=== PATIENT | female | born 1945 | race American Indian/Alaskan Native ===

== ENCOUNTER 2016-09-15 00:16 | Emergency (ER) | payer MEDICARE ==
--- NOTE | 2016-09-15 00:32 | Emergency Department Report ---
ED Neuro Deficit HPI - General Stated Complaint: LEFT SIDE WEAKNESS/SLURRED SPEECH Time Seen by Provider: 09/15/16 00:27 - History of Present Illness Initial Comments: This is a pleasant 71-year-old female who comes in by EMS due to left-sided weakness and slurred speech. EMS do report when they arrived on scene the patient patient was speaking clearly and was able to hand her cards to them with her left hand. Her symptoms of clearly changed in between. Should the patient indicates that she was using the restroom. She went to sit up from the toilet and was not able to use her left arm appropriately to help her with this process she I was ultimately able to get up and when she went and saw her he indicated that she had a left facial droop and that she was slurring her speech. EMS was called at that time. She believes her symptoms began around 2314. She denies any headache associated with this. She reports a being essentially normal day in general. Patient does indicate that she does have history of atrial fibrillation. She has been on different medications in the past for this including warfarin and pradaxa. She is not currently on any anticoagulation as she keeps having GI bleeding when she is on anticoagulants. She only takes metoprolol and lisinopril currently. She denies any recent trauma. She denies any seizure history. - Related Data Allergies/Adverse Reactions: Allergies Allergy/AdvReac Type Severity Reaction Status Date / Time No Known Allergies Allergy Verified 09/15/16 00:45 ED Review of Systems ROS: Stated complaint: LEFT SIDE WEAKNESS/SLURRED SPEECH Other details as noted in HPI Comment: All other systems reviewed and negative Constitutional: denies: chills, fever Eyes: denies: eye pain, eye discharge, vision change ENT: denies: ear pain, throat pain Respiratory: denies: cough, shortness of breath, wheezing Cardiovascular: denies: chest pain, palpitations Endocrine: no symptoms reported Gastrointestinal: denies: abdominal pain, nausea, diarrhea Genitourinary: denies: urgency, dysuria, discharge Musculoskeletal: other (L ankle pains from recent trauma). denies: back pain, joint swelling, arthralgia Skin: denies: rash, lesions Neurological: weakness, other (speech difficulty). denies: headache, paresthesias Psychiatric: denies: anxiety, depression Hematological/Lymphatic: denies: easy bleeding, easy bruising ED Neuro Physical Exam - General General appearance: alert, in no apparent distress, other (obvious facial asymmetry and slurring of speech) Suspected Stroke: Yes - Head Head exam: Present: atraumatic, normocephalic - Eye Eye exam: Present: normal appearance, EOMI. Absent: scleral icterus - ENT ENT exam: Present: normal orophraynx, mucous membranes moist - Neck Neck exam: Present: normal inspection, full ROM. Absent: meningismus, lymphadenopathy - Respiratory Respiratory exam: Present: normal lung sounds bilaterally. Absent: respiratory distress, wheezes, rales - Cardiovascular Cardiovascular Exam: Present: regular rate, irregular rhythm. Absent: systolic murmur, diastolic murmur, rubs, gallop - GI/Abdominal GI/Abdominal exam: Present: soft, normal bowel sounds. Absent: distended, tenderness, guarding - Extremities Exam Extremities exam: Present: normal inspection, normal capillary refill, other ( left ankle and walking boot. No other trauma noted to the lower extremities.). Absent: calf tenderness - Back Exam Back exam: Present: normal inspection. Absent: tenderness, CVA tenderness (R), CVA tenderness (L) - Neurological Exam Neurological exam: Present: alert, oriented X3, other (left facial droop with some nasolabial flattening noted as well. Some slight tongue deviation of the left. Gag is intact. Good strength and closing the eyes. Turns headache either way without difficulty. Upper extremity demonstrates left arm weakness. She is able to lift up against gravity but has significantly diminished strength compared to that of right. Leg is similar with able to lift against gravity but diminished compared to the right. Partial gaze palsy) - NIHSS Assessment Interval: Baseline 1a. Level of Consciousness: alert 1b. LOC Questions: answers correctly 1c. LOC Commands: performs tasks correctly 2. Best Gaze: partial gaze palsy 3. Visual: no visual loss 4. Facial Palsy: partial paralysis 5b. Motor Arm Right: no drift 5a. Motor Arm Left: drift 6a. Motor Leg Left: drift 6b. Motor Leg Right: no drift 7. Limb Ataxia: present 1 limb 8. Sensory: normal 9. Best Language: no aphasia 10. Dysarthria: mild/moderate dysarthria 11. Extinction/Inattention: no abnormality Total Score: 7 Stroke Severity: Moderate Stroke - Psychiatric Psychiatric exam: Present: normal affect, normal mood - Skin Skin exam: Present: warm, dry, intact, normal color. Absent: rash ED Course Vital Signs 09/15/16 09/15/16 09/15/16 00:18 00:54 01:48 Temperature 98.1 F Pulse Rate 64 64 72 Pulse Rate [ Right Arm] Respiratory 20 20 20 Rate Respiratory Rate [Right Arm ] Blood Pressure 164/61 Blood Pressure [Right Arm] Blood Pressure 164/61 179/56 [Right] O2 Sat by Pulse 98 98 98 Oximetry O2 Sat by Pulse Oximetry [ Right Arm] 09/15/16 09/15/16 09/15/16 01:58 02:09 02:14 Temperature Pulse Rate 69 79 76 Pulse Rate [ 76 Right Arm] Respiratory 20 Rate Respiratory 20 Rate [Right Arm ] Blood Pressure 190/64 156/74 Blood Pressure 156/74 [Right Arm] Blood Pressure 134/73 [Right] O2 Sat by Pulse 100 Oximetry O2 Sat by Pulse 98 Oximetry [ Right Arm] 09/15/16 09/15/16 09/15/16 02:15 02:29 02:44 Temperature Pulse Rate 76 Pulse Rate [ 102 H 84 Right Arm] Respiratory Rate Respiratory 20 20 Rate [Right Arm ] Blood Pressure 156/74 Blood Pressure 181/84 179/86 [Right Arm] Blood Pressure [Right] O2 Sat by Pulse Oximetry O2 Sat by Pulse 99 97 Oximetry [ Right Arm] - Reevaluation(s) Reevaluation #1: 09/15/16 00:35 Code stroke called. Labs have been drawn. Patient on way to CT at this time. She does appear to be a TPA candidate. Reevaluation #2: 09/15/16 01:03 ECG at O 48 with atrial fibrillation at 62 bpm. Right axis is noted. QRS is prolonged at [address]-T wave changes are noted as well. No old to compare to. Reevaluation #3: 09/15/16 02:20 CT brain initially demonstrated possible right MCA aneurysmal lesion. I didn't order a CTA due to this. CTA demonstrates ultimately some mild dilation in the right MCA distribution area but clear evidence of clot in the same area per DR. Barton. There is no contraindication as per the neurologist for TPA at this point I did not longest conversation with family as well we all concur that TPA should be pushed. This was ordered. Needle time was 02:10. Will send the pt for rescure therapy as well due to the large clot. Arrangements were made by the neurologist for transfer. Dr. Barton is my accepting physician. Dr. Mckeon, radiologist did comment on CTA as possibly demonstrating aneurysmal lesion in RCA but he felt comfortable with giving green light for TPA. - Lab Data Result diagrams: 09/15/16 00:44 09/15/16 00:44 Lab Results 09/15/16 09/15/16 09/15/16 Range/Units 00:44 00:44 00:44 WBC 6.2 (4.5-11.0) K/mm3 RBC 4.13 (3.65-5.03) M/mm3 Hgb 12.0 (10.1-14.3) gm/dl Hct 37.6 (30.3-42.9) % MCV 91 (79-97) fl MCH 29 (28-32) pg MCHC 32 (30-34) % RDW 16.2 H (13.2-15.2) % Plt Count 239 (140-440) K/mm3 Lymph % (Auto) Stockbroker Seg Neutrophils % Stockbroker PT 14.5 (12.2-14.9) Sec. INR 1.14 H (0.87-1.13) APTT 29.6 (24.2-36.6) Sec. Thrombin Time 20.0 H (15.1-19.6) Sec. Sodium 137 (137-145) mmol/L Potassium 4.5 (3.6-5.0) mmol/L Chloride 98.1 (98-107) mmol/L Carbon Dioxide 28 (22-30) mmol/L Anion Gap 15 mmol/L BUN 21 H (7-17) mg/dL Creatinine 1.0 (0.7-1.2) mg/dL Estimated GFR > 60 ml/min BUN/Creatinine Ratio 21.00 % Glucose 120 H (65-100) mg/dL Calcium 9.4 (8.4-10.2) mg/dL Total Bilirubin 0.4 (0.1-1.2) mg/dL AST 17 (5-40) units/L ALT 12 (7-56) units/L Alkaline Phosphatase 91 (35-129) units/L Total Creatine Kinase 33 (30-135) units/L CK-MB (CK-2) < 1.0 (0.0-4.0) ng/mL CK-MB (CK-2) Rel Index 3.0 (0-4) Troponin T < 0.010 (0.00-0.029) ng/mL Total Protein 8.0 (6.3-8.2) g/dL Albumin 3.9 (3.9-5) g/dL Albumin/Globulin Ratio 1.0 % Critical Care Time: Yes Critical care time in (mins) excluding proc time.: 50 Critical care attestation.: If time is entered above; I have spent that time in minutes in the direct care of this critically ill patient, excluding procedure time. ED Disposition Clinical Impression: Stroke due to embolism Qualifiers: Precerebral and cerebral artery: middle cerebral artery Laterality of affected vessel: right Qualified Code(s): I63.411 - Cerebral infarction due to embolism of right middle cerebral artery Disposition: DC/TX ANOTHER TYPE HEALTHCARE Is pt being admited?: No Condition: Stable Referrals: PRIMARY CARE, [Primary Care Provider] - 3-5 Days Time of Disposition: 02:
[2016-09-15 00:52] LABS: Hematocrit 37.6 % (30.3-42.9); Mean Corpuscular HGB Conc 32 % (30-34); Mean Corpuscular Hemoglobin 29 pg (28-32); Mean Corpuscular Volume 91 fl (79-97); Platelet Count 239 K/mm3 (140-440); Red Blood Count 4.13 M/mm3 (3.65-5.03); Red Cell Distribution Width 16.2 % (13.2-15.2); White Blood Count 6.2 K/mm3 (4.5-11.0)
[2016-09-15 00:53] LABS: INR 1.14 (0.87-1.13); Partial Thromboplastin Time 29.6 Sec. (24.2-36.6)
[2016-09-15 00:58] LABS: Creatine Kinase MB < 1.0 ng/mL (0.0-4.0)
[2016-09-15] MEDS ORDERED: ACTIVASE ONE (00:58)
[2016-09-15 00:59] LABS: Alanine Aminotransferase 12 units/L (7-56); Albumin 3.9 g/dL (3.9-5); Alkaline Phosphatase 91 units/L (35-129); Anion Gap 15 mmol/L; Bilirubin,Total 0.4 mg/dL (0.1-1.2); Blood Urea Nitrogen 21 mg/dL (7-17); Calcium 9.4 mg/dL (8.4-10.2); Carbon Dioxide 28 mmol/L (22-30); Chloride 98.1 mmol/L (98-107); Creatine Kinase 33 units/L (30-135); Glucose 120 mg/dL (65-100); Potassium 4.5 mmol/L (3.6-5.0); Sodium 137 mmol/L (137-145)
[2016-09-15] MEDS ORDERED: NACL ONE (01:01)
--- NOTE | 2016-09-15 01:01 | Cat Scan Report ---
FINAL REPORT PROCEDURE: CT HEAD/BRAIN WO CON TECHNIQUE: Computerized tomography of the head was performed without contrast material. HISTORY: suspected stroke. Left-sided weakness and facial droop. COMPARISON: No prior studies are available for comparison. FINDINGS: Skull and scalp: Normal. Paranasal sinuses: Normal. Ventricles and subarachnoid spaces: There is mild central and cortical atrophy. There is no hydrocephalus or asymmetry. Cerebrum: No evidence of hemorrhage, acute infarction or mass . Cerebellum and brainstem: No evidence of hemorrhage, acute infarction or mass. Vasculature: There is a 5 millimeter density at the proximal M1 segment of the right middle cerebral artery. Aneurysm is not excluded. There is no specific evidence of acute arterial thrombosis.. Comments: None. IMPRESSION: There is no specific evidence of acute ischemic stroke. There is no hemorrhage, edema, mass effect or midline shift. There is a questionable aneurysm of the right MCA. Further evaluation with CT angiogram or MRA may be helpful. There is no specific evidence of acute arterial thrombosis. Dr. Montes was notified by telephone at 12:[address] [facility]
[2016-09-15] MEDS ORDERED: APRESOLINE IV ONE (01:55)
[2016-09-15] MEDS ORDERED: ACTIVASE IV ONE ×2 (02:10)
[2016-09-15] MEDS ORDERED: NACL 0.9% IV ONE (02:10)
--- NOTE | 2016-09-15 02:34 | Cat Scan Report ---
FINAL REPORT PROCEDURE: CT ANGIO HEAD TECHNIQUE: Computerized tomographic angiography of the head was performed after the IV injection of iodinated nonionic contrast including image processing. The image data was postprocessed using 2-dimensional multiplanar reformatted (MPR) and 3-dimensional (MIP and/or volume rendered) techniques. HISTORY: L sided weakness and facial droop COMPARISON: No prior studies are available for comparison. FINDINGS: There is occlusion of the M1 segment of the right middle cerebral artery. The area at the proximal right MCA thought to represent aneurysm on the prior study corresponds to region of curvilinear contrast enhancement which could be a proximal arterial branch. Possibility of aneurysm is, however, not entirely excluded. The distal branches of the right MCA are patent indicating E there prompt development of collateralization or evidence of chronic MCA thrombosis. There is currently no specific evidence of cerebral edema. There is no hemorrhage. There is no mass effect or midline shift. The vertebral arteries, basilar artery, posterior cerebral arteries, anterior cerebral arteries and the left MCA artery and branches are patent. There is persistent origin of the right posterior cerebral artery which is a normal variation. The dural sinuses are patent. IMPRESSION: Occlusion of the M1 segment of the right MCA with patency of distal branches as described. Acute on chronic thrombosis considered. Appearance of aneurysm could be artifact but small aneurysm cannot be entirely excluded. The findings were discussed by telephone with Dr. Montes at 2:19 a.mMichael [place]
[2016-09-15 03:14] VITALS: BP 156/74
[2016-09-15 07:32] LABS: Basophils % (Manual) 0 % (0.0-1.8); Blastocytes % (Manual) 0 %
[2016-09-15 07:33] LABS: Anisocytosis 1+; Diff Status Complete
== END 2016-09-15 02:50 | disposition other institution (70) ==
LOC: ED 00:16
DX: I63.411 Cerebral infarction due to embolism of right middle cerebral artery (principal)
CPT/HCPCS: 36415; 70450; 70496; 80053; 82550; 82553; 84484; 85007; 85025; 85610; 85670; 85730; 93005; 93010; 96374; 96375; 99291; J0360; J2997; Q9967

== ENCOUNTER 2022-02-17 07:25 | Inpatient (IN) | payer MEDICARE ==
[2022-02-17] MEDS ORDERED: EPINEPHrine/PF 1 MG/1 ML INJ SUB-Q ONE (07:34)
[2022-02-17] MEDS ORDERED: IPRATROPIUM 0.02% NEBU 2.5 ML IH ONE (07:34)
--- NOTE | 2022-02-17 08:09 | XRay Report ---
CHEST 1 VIEW 02/17/2022 7:01 AM INDICATION / CLINICAL INFORMATION: Dyspnea. COMPARISON: None available. FINDINGS: SUPPORT DEVICES: None. HEART / MEDIASTINUM: Borderline heart size LUNGS / PLEURA: Mild bilateral pulmonary venous congestion is suspected. Possible small left pleural effusion. No pneumothorax. ADDITIONAL FINDINGS: No significant additional findings. IMPRESSION: 1. Consider mild CHF Signer Name: Jian Olmos Jr, MD Signed: 02/17/2022 8:05 AM Workstation Name: [id number]
[2022-02-17 08:46] LABS: Basophils % (Auto) 0.2 % (0.0-1.8); Eosinophils % (Auto) 0.2 % (0.0-4.3); Hemoglobin 11.2 gm/dl (10.1-14.3); Lymphocytes # (Auto) 0.4 K/mm3 (1.2-5.4); Lymphocytes % (Auto) 4.4 % (13.4-35.0); Mean Corpuscular HGB Conc 32 % (30-34); Mean Corpuscular Volume 95 fl (79-97); Monocytes # (Auto) 0.6 K/mm3 (0.0-0.8); Platelet Count 195 K/mm3 (140-440); Red Blood Count 3.71 M/mm3 (3.65-5.03); Red Cell Distribution Width 14.9 % (13.2-15.2)
[2022-02-17] MEDS ORDERED: ALBUTEROL 2.5 MG/3 ML NEBU IH ONE (08:58)
[2022-02-17 09:03] LABS: Creatine Kinase MB 3.1 ng/mL (0.0-4.0)
[2022-02-17 09:05] LABS: Albumin 3.7 g/dL (3.9-5); Calcium 8.9 mg/dL (8.4-10.2)
[2022-02-17 09:26] LABS: ABG Base Excess 1.4 mmol/L (-2.0-3.0); ABG Methemoglobin 0.4 % (0.0-1.5); ABG PCO2 47.8 mm Hg; ABG PH 7.37 pH Units (7.350-7.450); ABG PO2 168.8 mm Hg (80.0-90.0)
[2022-02-17] MEDS ORDERED: ONDANSETRON 4 MG/2 ML INJ IV PRN ×2 (09:53→11:30)
[2022-02-17] MEDS ORDERED: MORPHINE 4 MG/1 ML INJ IV PRN ×2 (09:53→11:30)
[2022-02-17] MEDS ORDERED: oxyCODONE /ACETAMINOPHEN 5-325MG TAB PO PRN (09:53)
--- NOTE | 2022-02-17 09:55 | Emergency Department Report ---
ED General Adult HPI - General Chief complaint: Dyspnea/Respdistress Stated complaint: CHEST PAIN/SOB PUI?: No Time Seen by Provider: 02/17/22 07:34 Source: patient, EMS Mode of arrival: Stretcher Limitations: No Limitations - History of Present Illness Initial comments: SOB and JIMI chest pain started at 3 am in [place] while in bed , pt has history of CHF and afib not only Blood thinerres for anemia, EKG showed LBBB , new onset -: Gradual, hour(s) Location: chest Radiation: back Quality: aching, constant Consistency: constant Improves with: none Associated Symptoms: chest pain, cough, shortness of breath - Related Data Allergies Allergy/AdvReac Type Severity Reaction Status Date / Time No Known Allergies Allergy Verified 02/17/22 07:51 ED Review of Systems ROS: Stated complaint: CHEST PAIN/SOB Other details as noted in HPI Constitutional: denies: chills, fever Eyes: denies: eye pain, eye discharge, vision change ENT: denies: ear pain, throat pain Respiratory: denies: cough, shortness of breath, wheezing Cardiovascular: denies: chest pain, palpitations Endocrine: no symptoms reported Gastrointestinal: denies: abdominal pain, nausea, diarrhea Genitourinary: denies: urgency, dysuria, discharge Musculoskeletal: denies: back pain, joint swelling, arthralgia Skin: denies: rash, lesions Neurological: denies: headache, weakness, paresthesias Psychiatric: denies: anxiety, depression Hematological/Lymphatic: denies: easy bleeding, easy bruising ED Past Medical Hx - Past Medical History Hx Hypertension: Yes Hx Congestive Heart Failure: Yes Additional medical history: A. Fib - Surgical History Additional Surgical History: left ankle surgery. right knee surgery - Social History Smoking Status: Never Smoker Substance Use Type: None ED Physical Exam - General Limitations: No Limitations General appearance: alert, in distress, obese - Head Head exam: Present: atraumatic, normocephalic - Eye Eye exam: Present: normal appearance - ENT ENT exam: Present: mucous membranes moist - Neck Neck exam: Present: normal inspection - Respiratory Respiratory exam: Present: wheezes, rales. Absent: respiratory distress - Cardiovascular Cardiovascular Exam: Present: normal rhythm, tachycardia. Absent: systolic murmur, diastolic murmur, rubs, gallop - GI/Abdominal GI/Abdominal exam: Present: soft, normal bowel sounds - Extremities Exam Extremities exam: Present: normal inspection - Back Exam Back exam: Present: normal inspection - Neurological Exam Neurological exam: Present: alert, oriented X3 - Psychiatric Psychiatric exam: Present: normal affect, normal mood - Skin Skin exam: Present: warm, dry, intact, normal color. Absent: rash ED Course Vital Signs 02/17/22 02/17/22 02/17/22 07:39 08:31 09:00 Temperature 100.3 F H Pulse Rate 105 H 105 H Pulse Rate [ 99 H Anterior Bilateral Throughout] Respiratory 20 Rate [Anterior Bilateral Throughout] Blood Pressure 109/47 ED Medical Decision Making - Lab Data Result diagrams: 02/17/22 08:17 02/17/22 08:17 - EKG Data -: EKG Interpreted by Me - EKG Data Interpretation: other (LBBB ) - Radiology Data Radiology results: report reviewed, image reviewed Critical care attestation.: If time is entered above; I have spent that time in minutes in the direct care of this critically ill patient, excluding procedure time. ED Disposition Clinical Impression: Chest pain, Acute systolic CHF (congestive heart failure), ACS (acute coronary syndrome) Disposition: ADMITTED INPATIENT Is pt being admited?: Yes Does the pt Need Aspirin: Yes Condition: Critical Instructions: Nonspecific Chest Pain, Adult
[2022-02-17 09:59] LABS: Chol/HDL Ratio 3.01 %
[2022-02-17] MEDS ORDERED: ACETAMINOPHEN 325 MG TAB PO PRN (10:30)
--- NOTE | 2022-02-17 10:48 | History and Physical Report ---
History of Present Illness Date of admission: 02/17/22 09:53 Chief complaint: I have pain in my chest History of present illness: 76 YO Female with HTN, CHF, Atrial Fib not taking therapeutic anticoagulation, Anemia of Chronic Disease, OA, Obesity Hypoventilation Syndrome, Metabolic Syndrome presents to ED for evaluation. Patient reports "I have pain in my chest". Patient states that she experienced a sudden onset of pain that awaken her from sleep at approximately 0300 hrs. Patient states that pain is -02/2010, constant, crushing in nature, radiates to the back, worsened with exertion, relieved with rest. Patient states that she had waited for the pain to improve and subsequently waited approximately 2 hours before calling EMS. EMS was notified and upon arrival the patient was found to be in distress and subsequent transported to [facility] for further care and evaluation of the aforementioned symptoms. The patient was seen and evaluated in the emergency department. All lab and imaging studies reviewed. Patient found to have clinical symptoms consistent with CHF decompensation, angina at rest, as well as NSTEMI type II. EKG revealed new onset left bundle branch block. Cardiology team notified. Patient taken urgently to [facility] for surgical intervention. Patient denies fever, chills, productive cough, skin rash, recent contact, known exposure to COVID-19. No prior admission for review. No medication listed at time of admission for reconciliation. Advanced care planning conducted in ED. Past History Past Medical History: atrial fib, anemia, heart failure, hypertension, other (See HPI) Past Surgical History: Other (Left ankle surgery, right knee surgery) Social history: . denies: smoking, alcohol abuse, prescription drug abuse Family history: diabetes, hypertension Medications and Allergies Allergies Allergy/AdvReac Type Severity Reaction Status Date / Time No Known Allergies Allergy Verified 02/17/22 07:51 Active Meds: Active Medications Acetaminophen (Acetaminophen 325 Mg Tab) 650 mg PO Q4H PRN PRN Reason: Pain MILD(1-3)/Fever >100.5/RAYMUNDO Enoxaparin Sodium (Enoxaparin 30 Mg/0.3 Ml Inj) 30 mg SUB-Q QDAY MANPREET Sodium Chloride (Nacl 0.9% 500 Ml) 500 mls @ 50 mls/hr IV DIRECT MANPREET Stop: 02/17/22 20:59 Morphine Sulfate (Morphine 4 Mg/1 Ml Inj) 2 mg IV Q4H PRN PRN Reason: Pain , Severe (7-10) Ondansetron HCl (Ondansetron 4 Mg/2 Ml Inj) 4 mg IV Q8H PRN PRN Reason: Nausea And Vomiting Oxycodone/Acetaminophen (Oxycodone /Acetaminophen 5-325mg Tab) 1 tab PO Q6H PRN PRN Reason: Pain, Moderate (4-6) Sodium Chloride (Sodium Chloride 0.9% 10 Ml Flush Syringe) 10 ml IV BID MANPREET Sodium Chloride (Sodium Chloride 0.9% 10 Ml Flush Syringe) 10 ml IV PRN PRN PRN Reason: LINE FLUSH Review of Systems Constitutional: no weight loss, no weight gain, no fever, no chills Ears, nose, mouth and throat: no ear pain, no decreased hearing, no nose pain, no nasal discharge Cardiovascular: chest pain, shortness of breath, dyspnea on exertion, decreased exercise tolerance Respiratory: no cough, no cough with sputum, no excessive sputum, no hemoptysis Gastrointestinal: no nausea, no vomiting, no diarrhea, no constipation, no change in bowel habits Genitourinary Female: no pelvic pain, no flank pain, no dysuria, no urinary frequency, no urgency Rectal: no pain, no incontinence, no bleeding Musculoskeletal: no neck stiffness, no neck pain, no shooting arm pain, no arm numbness/tingling, no low back pain, no leg numbness/tingling Integumentary: no rash, no pruritis, no redness, no sores, no wounds Neurological: no head injury, no transient paralysis, no weakness, no parathesias, no tingling, no seizures, no syncope Psychiatric: no anxiety, no change in sleep habits, no sleep disturbances, no insomnia, no change in libido Endocrine: no cold intolerance, no polyphagia, no polydipsia, no polyuria Hematologic/Lymphatic: no easy bruising, no easy bleeding Allergic/Immunologic: no urticaria, no allergic rhinitis, no wheezing Exam - Constitutional Vitals: Temp Pulse Resp BP Pulse Ox 100.3 F H 106 H 22 109/47 91 02/17/22 07:39 02/17/22 09:46 02/17/22 09:46 02/17/22 09:46 02/17/22 09:46 General appearance: Present: mild distress, obese - EENT Eyes: Present: PERRL ENT: hearing intact, clear oral mucosa - Neck Neck: Present: supple, normal ROM - Respiratory Respiratory effort: normal Respiratory: bilateral: CTA - Cardiovascular Rhythm: irregularly irregular Heart Sounds: Present: S1 & S2. Absent: rub, click - Extremities Extremities: pulses symmetrical Extremity abnormal: edema Peripheral Pulses: within normal limits - Abdominal General gastrointestinal: Present: soft, non-tender, non-distended, normal bowel sounds Female genitourinary: Present: normal - Integumentary Integumentary: Present: clear, warm, dry - Musculoskeletal Musculoskeletal: gait normal, strength equal bilaterally - Psychiatric Psychiatric: appropriate mood/affect, intact judgment & insight - Neurologic Neurologic: CNII-XII intact, moves all extremities HEART Score - HEART Score Troponin: Troponin T 0.281 ng/mL (0.00-0.029) H* 02/17/22 08:17 Results - Labs CBC & Chem 7: 02/17/22 08:17 02/17/22 08:17 Labs: Abnormal lab results 02/17/22 02/17/22 02/17/22 Range/Units 08:17 08:17 08:17 Lymph % (Auto) 4.4 L (13.4-35.0) % Lymph # (Auto) 0.4 L (1.2-5.4) K/mm3 Seg Neutrophils % 89.2 H (40.0-70.0) % Seg Neutrophils # 9.0 H (1.8-7.7) K/mm3 ABG pO2 (80.0-90.0) mm Hg ABG HCO3 (20.0-26.0) mmol/L ABG Hemoglobin (12.0-16.0) gm/dl Sodium 136 L (137-145) mmol/L Chloride 97.8 L (98-107) mmol/L BUN 36 H (7-17) mg/dL Creatinine 1.6 H (0.6-1.2) mg/dL Lactic Acid 2.10 H* (0.7-2.0) mmol/L CK-MB (CK-2) Rel Index 8.1 H (0-4) Troponin T 0.281 H* (0.00-0.029) ng/mL C-Reactive Protein (0.00-1.30) mg/dL NT-Pro-B Natriuret Pep (0-900) pg/mL Albumin 3.7 L (3.9-5) g/dL 02/17/22 02/17/22 Range/Units 08:17 09:00 Lymph % (Auto) (13.4-35.0) % Lymph # (Auto) (1.2-5.4) K/mm3 Seg Neutrophils % (40.0-70.0) % Seg Neutrophils # (1.8-7.7) K/mm3 ABG pO2 168.8 H (80.0-90.0) mm Hg ABG HCO3 27.0 H (20.0-26.0) mmol/L ABG Hemoglobin 9.2 L (12.0-16.0) gm/dl Sodium (137-145) mmol/L Chloride (98-107) mmol/L BUN (7-17) mg/dL Creatinine (0.6-1.2) mg/dL Lactic Acid (0.7-2.0) mmol/L CK-MB (CK-2) Rel Index (0-4) Troponin T (0.00-0.029) ng/mL C-Reactive Protein 4.30 H (0.00-1.30) mg/dL NT-Pro-B Natriuret Pep 5108 H (0-900) pg/mL Albumin (3.9-5) g/dL Assessment and Plan - Patient Problems (1) Acute systolic CHF (congestive heart failure) Current Visit: Yes Status: Acute Plan to address problem: CHF protocol: Strict I's/O, monitoring output every shift, daily weight, afterload reduction, blood pressure control, cardiology team consulted, diuresis. (2) NSTEMI (non-ST elevated myocardial infarction) Current Visit: Yes Status: Acute Plan to address problem: ACS protocol: Serial cardiac enzymes, EKG, telemetry monitoring, patient taken urgently to [facility] for surgical intervention, supportive care, blood pressure control. Cardiology team consulted in ED. (3) Angina at rest Current Visit: Yes Status: Acute Plan to address problem: Serial cardiac enzymes, EKG, morphine, submental oxygen, nitro, aspirin, pain control, supportive care. (4) Heart block Current Visit: Yes Status: Acute Plan to address problem: Cardiology team consulted, telemetry monitoring, continue medical management. (5) Obesity hypoventilation syndrome Current Visit: Yes Status: Acute Plan to address problem: Balanced diet, increase physical activity discharge, outpatient pulmonary follow-up for sleep study. Outpatient bariatric surgery evaluation. (6) HTN (hypertension) Current Visit: Yes Status: Acute Qualifiers: Hypertension type: primary hypertension Qualified Code(s): I10 - Essential (primary) hypertension Plan to address problem: Monitor blood pressure every shift, continue medical management. (7) DVT prophylaxis Current Visit: Yes Status: Acute Plan to address problem: SCD to bilateral lower extremities while in bed, (8) Advance care planning Current Visit: Yes Status: Acute Plan to address problem: Disease education conducted, care plan discussed, diagnoses discussed, prognosis discussed, patient is full code. Patient acknowledges understanding and agreement with care plan, +30 minutes. (9) Preventative health care Current Visit: Yes Status: Acute Plan to address problem: Patient counseled regarding risk factor reduction, balanced diet, meal planning, weight reduction, outpatient follow-up with primary care physician for all age and risk factor appropriate screening test. +30 minutes.
[2022-02-17] MEDS ORDERED: SODIUM CHLORIDE 0.9% 500 ML 500 ML IV SCH ×2 (11:00→12:00)
[2022-02-17] MEDS: ASPIRIN EC 325 MG TAB PO SCH (11:33)
[2022-02-17] MEDS ORDERED: VERAPAMIL 5 MG/2 ML INJ ONE (12:01)
[2022-02-17] MEDS ORDERED: HEPARIN 10,000 UNITS/10 ML VIAL ONE (12:01)
[2022-02-17] MEDS ORDERED: MIDAZOLAM 2 MG/2 ML INJ ONE (12:01)
[2022-02-17] MEDS ORDERED: NITROGLYCERIN SYRINGE 3 ML ONE (12:01)
[2022-02-17] MEDS ORDERED: HEPARIN/NS 5000 UNIT/500ML 1,000 ML IR ONE (12:01)
[2022-02-17] MEDS ORDERED: fentaNYL 100 MCG/2 ML INJ ONE (12:01)
[2022-02-17] MEDS ORDERED: LIDOCAINE (2%) 20 MG/1 ML VIAL 20 ML MDV INFILTRATI ONE (12:02)
--- NOTE | 2022-02-17 13:23 | Consultation ---
History of Present Illness Consult date: 02/17/22 Requesting physician: TRISTIN GRIMES Consult reason: other (NSTEMI and new LBBB) History of present illness: Patient is a 76-year-old female with a past medical history of CHF, A. fib (not on OAC due to anemia), history of CVA, hypertension, DEJUAN, and anemia who came to the ED for complaint of chest pain and shortness of breath which started at 3 AM in the morning. Patient reports that she waited until around 5 AM before calling EMS. Patient transported to the hospital for further evaluation. In the ED patient's EKG showed new LBBB and found to have elevated troponin. At that time patient still complained of chest pain and shortness of breath. She denies nausea vomiting, diaphoresis, or palpitations. Patient is previously unknown to our practice however, patient is a [facility] patient. Cardiology is consulted for NSTEMI and new LBBB. Past History Past Medical History: atrial fib, anemia, heart failure Past Surgical History: Other (ankle surgery and hip surgery) Social history: no significant social history Medications and Allergies Allergies Allergy/AdvReac Type Severity Reaction Status Date / Time No Known Allergies Allergy Verified 02/17/22 07:51 Active Meds: Active Medications Acetaminophen (Acetaminophen 325 Mg Tab) 650 mg PO Q4H PRN PRN Reason: Pain MILD(1-3)/Fever >100.5/RAYMUNDO Aspirin (Aspirin Ec 325 Mg Tab) 325 mg PO QDAY MANPREET Last Admin: 02/17/22 11:33 Dose: 325 mg Enoxaparin Sodium (Enoxaparin 30 Mg/0.3 Ml Inj) 30 mg SUB-Q QDAY MANPREET Furosemide (Furosemide 40 Mg/4 Ml Inj) 40 mg IV 0600,1800 MANPREET Sodium Chloride (Nacl 0.9% 500 Ml) 500 mls @ 50 mls/hr IV DIRECT MANPREET Stop: 02/17/22 20:59 Sodium Chloride (Nacl 0.9% 500 Ml) 500 mls @ 50 mls/hr IV DIRECT MANPREET Metoprolol Succinate (Metoprolol Succinate Xl 25 Mg Tab) 25 mg PO QDAY MANPREET Morphine Sulfate (Morphine 4 Mg/1 Ml Inj) 2 mg IV Q4H PRN PRN Reason: Pain , Severe (7-10) Ondansetron HCl (Ondansetron 4 Mg/2 Ml Inj) 4 mg IV Q8H PRN PRN Reason: Nausea And Vomiting Oxycodone/Acetaminophen (Oxycodone /Acetaminophen 5-325mg Tab) 1 tab PO Q6H PRN PRN Reason: Pain, Moderate (4-6) Sodium Chloride (Sodium Chloride 0.9% 10 Ml Flush Syringe) 10 ml IV BID MANPREET Sodium Chloride (Sodium Chloride 0.9% 10 Ml Flush Syringe) 10 ml IV PRN PRN PRN Reason: LINE FLUSH Review of Systems Constitutional: chills Cardiovascular: chest pain, orthopnea, shortness of breath, dyspnea on exertion Respiratory: shortness of breath, dyspnea on exertion Gastrointestinal: no abdominal pain, no nausea, no vomiting Musculoskeletal: no neck stiffness, no neck pain Integumentary: no rash, no pruritis, no redness Neurological: no head injury, no transient paralysis Psychiatric: no anxiety, no memory loss Endocrine: no cold intolerance, no heat intolerance Hematologic/Lymphatic: no easy bruising, no easy bleeding Physical Examination Vital Signs Temp Pulse BP 100.3 F H 105 H 109/47 02/17/22 07:39 02/17/22 07:39 02/17/22 07:39 General appearance: no acute distress Neck: Positive: trachea midline Cardiac: Positive: Reg Rate and Rhythm Lungs: Positive: Decreased Breath Sounds Neuro: Positive: Grossly Intact Abdomen: Positive: Soft Skin: Negative: Rash, Suspicious Lesions Extremities: Present: upper extr. pulses, edema Results 02/17/22 08:17 02/17/22 08:17 Cardiac Enzymes 02/17/22 Range/Units 08:17 AST 22 (5-40) units/L CK-MB (CK-2) 3.1 (0.0-4.0) ng/mL Lipids 02/17/22 Range/Units 08:17 Triglycerides 97 (2-149) mg/dL Cholesterol 163 (50-199) mg/dL HDL Cholesterol 54 (40-59) mg/dL Cholesterol/HDL Ratio 3.01 % CBC 02/17/22 Range/Units 08:17 WBC 10.0 (4.5-11.0) K/mm3 RBC 3.71 (3.65-5.03) M/mm3 Hgb 11.2 (10.1-14.3) gm/dl Hct 35.0 (30.3-42.9) % Plt Count 195 (140-440) K/mm3 Lymph # (Auto) 0.4 L (1.2-5.4) K/mm3 [place] # (Auto) 0.6 (0.0-0.8) K/mm3 Eos # (Auto) 0.0 (0.0-0.4) K/mm3 Baso # (Auto) 0.0 (0.0-0.1) K/mm3 Comprehensive Metabolic Panel 02/17/22 Range/Units 08:17 Sodium 136 L (137-145) mmol/L Potassium 3.6 (3.6-5.0) mmol/L Chloride 97.8 L (98-107) mmol/L Carbon Dioxide 27 (22-30) mmol/L BUN 36 H (7-17) mg/dL Creatinine 1.6 H (0.6-1.2) mg/dL Glucose 96 (65-100) mg/dL Calcium 8.9 (8.4-10.2) mg/dL AST 22 (5-40) units/L ALT 11 (7-56) units/L Alkaline Phosphatase 101 (35-129) units/L Total Protein 6.7 (6.3-8.2) g/dL Albumin 3.7 L (3.9-5) g/dL - Imaging and Cardiology Echo: pending Cardiac cath: pending EKG: report reviewed, image reviewed EKG interpretations - Telemetry EKG Rhythm: Sinus Tachycardia - EKG Sinus rhythms and dysrhythmias: sinus tachycardia AV and intraventricular conduction: left bundle branch block Assessment and Plan Patient is a 76-year-old female with a past medical history of CHF, A. fib (not on OAC due to anemia), history of CVA, hypertension, DEJUAN, and anemia who came to the ED for complaint of chest pain and shortness of breath which started at 3 AM in the morning NSTEMI New LBBB JERMAINE on CKD? Lactic acidosis A. fib-not on anticoagulation due to history of anemia Hypertension History of CVA DEJUAN History of anemia Cardiac cath 02/17/2022-left main pain, LAD pain, circumflex patent, RCA pain. Nonischemic cardiomyopathy with severe LV dysfunction estimated EF 25%. Plan: EKG shows sinus tach 114 with new left bundle branch block. Patient elevated troponins and reports chest pain and shortness of breath Patient for cardiac cath this a.m. patient had negative cardiac cath. See cath report for full detail Patient found to have elevated BNP and CXR positive for CHF. Furthermore patient reports shortness of breath. Will initiate Lasix 40 mg IV twice daily for diuresis Strict I&O's, daily weights, and repeat BMP in the a.m. with close monitoring of renal function Will initiate metoprolol XL 25 mg p.o. daily and aspirin daily Will hold BROOKE or ARB at this time due to elevated creatinine Upon review of records patient was discharged from [place] in September and was instructed to hold off on anticoagulation due to symptomatic anemia. Patient was instructed to follow-up with hematology before resuming anticoagulation. Will continue to hold anticoagulation at this Echo pending Patient seen in conjunction with Dr. Cunningham who agrees with plan of care - Patient Problems (1) Left bundle branch block (LBBB) Current Visit: Yes Status: Acute (2) PAF (paroxysmal atrial fibrillation) Current Visit: Yes Status: Acute (3) H/O: CVA (cerebrovascular accident) Current Visit: Yes Status: Acute (4) Acute systolic CHF (congestive heart failure) Current Visit: Yes Status: Acute (5) HTN (hypertension) Current Visit: Yes Status: Acute (6) NSTEMI (non-ST elevated myocardial infarction) Current Visit: Yes Status: Acute (7) Obesity hypoventilation syndrome Current Visit: Yes Status: Acute
--- NOTE | 2022-02-17 13:45 | Cardiac Catherization Report ---
DATE OF SERVICE: 02/17/2022 LEFT HEART CATHETERIZATION CLINICAL INFORMATION: A 76-year-old female with morbid obesity, immobile, history of atrial fibrillation, not on anticoagulation, presents with acute shortness of breath and chest pressure starting earlier this morning with EKG shows AFib with left bundle branch block. In view of the records from [place], this is new and from [place] this is new. The patient had acute systolic heart failure despite medical therapy. The patient was brought for an urgent cardiac catheterization, has renal insufficiency. The patient was done with moderate sedation started at 12:43, finished at 12:58, 15 minutes of moderate sedation. DESCRIPTION OF PROCEDURE: Procedure was done via the right radial artery, sterile technique and local anesthesia. A 6-Congolese radial sheath inserted. Left system engaged with JL3.5 catheter. Left main is large and patent, bifurcates into large LAD that is patent. Diagonal 1 and 2 are medium caliber vessels. Circumflex, large caliber vessel. OM1, OM2 are large caliber vessels, patent. RCA engaged with JR4 is a large dominant vessel, was patent. PDA, PLV are medium caliber vessels, patent. LV gram done in SYDNEE and LÓPEZ views show severe LV dysfunction with LV dilatation, EF 25%. LVEDP at 28 mmHg, LV is 130. Aortic is 130/68. No gradient across the aortic valve on pullback. The 5-Congolese catheters all taken over guidewire. A 6-Congolese radial sheath was discontinued. Radial band applied. No hematoma, no bleeding. SUMMARY: Minimal contrast used, less than 40 mL. Left main patent, LAD patent, circ patent, RCA patent. Nonischemic cardiomyopathy with severe LV dysfunction with LVEDP of 28 mmHg. We will treat medically ischemic cardiomyopathy and acute systolic heart failure. TID: [id number] RECEIPT: [id number] SUPA/MARBELLA/ZAINA
[2022-02-17] MEDS ORDERED: METOPROLOL SUCCINATE XL 25 MG TAB PO SCH (14:00)
[2022-02-17] MEDS: FUROSEMIDE 40 MG/4 ML INJ IV SCH (17:23)
[2022-02-17 21:41] LABS: INR 1.04 (0.87-1.13)
[2022-02-17 21:42] LABS: Partial Thromboplastin Time 29.5 Sec. (24.2-36.6)
[2022-02-18 05:32] LABS: Calcium 8.3 mg/dL (8.4-10.2)
[2022-02-18] MEDS: FUROSEMIDE 40 MG/4 ML INJ IV SCH ×2 (06:34→17:42)
[2022-02-18] MEDS: ASPIRIN EC 325 MG TAB PO SCH (09:28)
[2022-02-18] MEDS ORDERED: ENOXAPARIN 30 MG/0.3 ML INJ SUB-Q SCH ×2 (10:00)
[2022-02-18] MEDS: METOPROLOL TARTRATE 25 MG TAB PO SCH ×2 (11:17→21:31)
--- NOTE | 2022-02-18 13:00 | Progress Note ---
Assessment and Plan Patient is a 76-year-old female with a past medical history of CHF, A. fib (not on OAC due to anemia), history of CVA, hypertension, DEJUAN, and anemia who came to the ED for complaint of chest pain and shortness of breath which started at 3 AM in the morning NSTEMI New LBBB JERMAINE on CKD? Lactic acidosis A. fib-not on anticoagulation due to history of anemia Hypertension History of CVA DEJUAN History of anemia Cardiac cath 02/17/2022-left main pain, LAD pain, circumflex patent, RCA pain. Nonischemic cardiomyopathy with severe LV dysfunction estimated EF 25%. Plan: Patient found to have elevated BNP and CXR positive for CHF. Furthermore patient reports shortness of breath. Continue Lasix 40 mg IV twice daily for diuresis Strict I&O's, daily weights, and repeat BMP in the a.m. with close monitoring of renal function Patient heart rate dropped into the 40s and 50s will stop metoprolol XL 25 mg p.o. daily and convert to metoprolol 12.5 mg p.o. twice daily Will hold BROOKE or ARB at this time due to elevated creatinine Upon review of records patient was discharged from [place] in September and was instructed to hold off on anticoagulation due to symptomatic anemia. Patient was instructed to follow-up with hematology before resuming anticoagulation. Will continue to hold anticoagulation at this Echo pending Patient seen in conjunction with Dr. Cunningham who agrees with plan of care - Patient Problems (1) Left bundle branch block (LBBB) Current Visit: Yes Status: Acute (2) PAF (paroxysmal atrial fibrillation) Current Visit: Yes Status: Acute (3) H/O: CVA (cerebrovascular accident) Current Visit: Yes Status: Acute (4) Acute systolic CHF (congestive heart failure) Current Visit: Yes Status: Acute (5) HTN (hypertension) Current Visit: Yes Status: Acute Qualifiers: Hypertension type: primary hypertension Qualified Code(s): I10 - Essential (primary) hypertension (6) NSTEMI (non-ST elevated myocardial infarction) Current Visit: Yes Status: Acute (7) Obesity hypoventilation syndrome Current Visit: Yes Status: Acute (8) Acute on chronic HFrEF (heart failure with reduced ejection fraction) Current Visit: Yes Status: Acute Subjective Date of service: 02/18/22 Principal diagnosis: Acute HFrEF, new LBBB Interval history: Patient resting in bed in no acute distress. Patient reports feeling better this a.m. Sinus 50s to 60s with episodes of bradycardia into the 40s overnight Objective Vital Signs Temp Pulse Pulse Resp BP Pulse Ox 02/18/22 12:30 63 21 129/69 100 02/18/22 12:00 62 43 L 20 129/69 98 02/18/22 11:41 98.1 F 02/18/22 11:30 57 L 17 128/63 98 02/18/22 11:00 57 L 20 128/63 100 02/18/22 10:30 49 L 22 109/51 99 02/18/22 10:00 53 L 13 109/51 100 02/18/22 09:30 61 10 L 116/53 100 02/18/22 09:00 53 L 19 116/53 100 02/18/22 08:30 51 L 18 122/55 100 02/18/22 08:00 51 L 43 L 15 122/55 100 02/18/22 07:30 45 L 16 115/57 100 02/18/22 07:14 98.7 F 02/18/22 07:00 46 L 17 115/57 100 02/18/22 06:30 58 L 17 109/50 98 02/18/22 06:00 49 L 14 100/40 100 02/18/22 05:30 41 L 16 109/50 100 02/18/22 05:00 45 L 18 109/50 100 02/18/22 04:30 48 L 15 111/50 100 02/18/22 04:00 98.8 F 43 L 43 L 15 111/50 100 02/18/22 03:30 46 L 17 104/59 100 02/18/22 03:00 47 L 13 104/59 100 02/18/22 02:30 49 L 14 105/49 100 02/18/22 02:00 44 L 14 105/49 100 02/18/22 01:30 47 L 14 94/43 100 02/18/22 01:00 49 L 15 94/43 100 02/18/22 00:30 45 L 13 111/48 100 02/18/22 00:00 97.5 F L 48 L 50 L 14 111/48 100 02/17/22 23:30 54 L 14 117/58 100 02/17/22 23:00 47 L 14 117/58 99 02/17/22 22:30 57 L 15 94/39 98 02/17/22 22:00 50 L 15 94/39 98 02/17/22 21:30 53 L 15 103/61 99 02/17/22 21:02 49 L 13 103/61 99 02/17/22 21:00 54 L 13 103/61 98 02/17/22 20:50 56 L 14 116/59 100 02/17/22 20:40 53 L 13 116/59 100 02/17/22 20:30 50 L 14 100 02/17/22 20:21 55 L 14 116/59 100 02/17/22 20:11 53 L 12 116/59 100 02/17/22 20:00 98.3 F 55 L 58 L 19 116/59 99 02/17/22 19:51 67 17 116/57 99 02/17/22 19:41 59 L 14 116/57 99 02/17/22 19:31 49 L 14 116/57 100 02/17/22 19:21 50 L 13 116/57 100 02/17/22 19:11 56 L 16 116/57 99 02/17/22 19:00 58 L 17 116/57 99 02/17/22 18:51 57 L 14 114/62 100 02/17/22 18:40 63 16 114/62 99 02/17/22 18:31 59 L 15 114/62 99 02/17/22 18:21 59 L 14 114/62 99 02/17/22 18:11 61 16 114/62 100 02/17/22 18:01 57 L 18 114/62 99 02/17/22 17:51 67 22 115/67 100 02/17/22 17:40 67 15 115/67 97 02/17/22 17:31 50 L 17 123/70 100 02/17/22 17:30 98 02/17/22 17:21 64 20 123/70 99 02/17/22 17:11 57 L 15 123/70 100 02/17/22 17:00 68 15 123/70 100 02/17/22 16:51 59 L 19 120/70 100 02/17/22 16:41 66 16 120/70 100 02/17/22 16:31 61 145/83 02/17/22 16:30 59 L 14 145/83 100 02/17/22 16:21 66 15 134/78 02/17/22 16:11 81 14 134/78 02/17/22 16:00 69 18 134/78 02/17/22 15:51 72 16 136/74 02/17/22 15:41 60 15 142/76 02/17/22 15:38 98 02/17/22 15:30 65 17 142/76 02/17/22 15:21 61 13 121/60 02/17/22 15:11 62 15 134/84 02/17/22 15:00 65 15 134/84 02/17/22 14:51 60 15 136/68 02/17/22 14:41 60 14 121/60 02/17/22 14:31 63 23 121/60 93 02/17/22 14:21 61 16 130/80 02/17/22 14:11 71 16 129/71 02/17/22 14:00 67 18 129/71 02/17/22 13:54 74 02/17/22 13:51 69 13 02/17/22 13:42 72 15 100 - Physical Examination General: No Apparent Distress HEENT: Positive: PERRL Neck: Positive: trachea midline Cardiac: Positive: Reg Rate and Rhythm Lungs: Positive: Decreased Breath Sounds Neuro: Positive: Grossly Intact Abdomen: Positive: Soft Skin: Negative: Rash, Suspicious Lesions Extremities: Present: upper extr. pulses, edema - Labs and Meds Coagulation 02/17/22 Range/Units 21:22 PT 15.1 H (12.2-14.9) Sec. INR 1.04 (0.87-1.13) APTT 29.5 (24.2-36.6) Sec. Comprehensive Metabolic Panel 02/18/22 Range/Units 04:42 Sodium 137 (137-145) mmol/L Potassium 4.3 (3.6-5.0) mmol/L Chloride 97.6 L (98-107) mmol/L Carbon Dioxide 30 (22-30) mmol/L BUN 42 H (7-17) mg/dL Creatinine 1.6 H (0.6-1.2) mg/dL Glucose 99 (65-100) mg/dL Calcium 8.3 L (8.4-10.2) mg/dL - Imaging and Cardiology EKG: report reviewed, image reviewed Echo: report reviewed Cardiac cath: report reviewed - Telemetry EKG Rhythm: Sinus Rhythm - EKG Sinus rhythms and dysrhythmias: sinus rhythm AV and intraventricular conduction: left bundle branch block
--- NOTE | 2022-02-18 16:50 | Progress Note ---
Assessment and Plan Assessment and plan: 76 YO Female with HTN, CHF, Atrial Fib not taking therapeutic anticoagulation, Anemia of Chronic Disease, OA, Obesity Hypoventilation Syndrome, Metabolic Syndrome presents to ED for evaluation. Patient reports "I have pain in my chest". Patient states that she experienced a sudden onset of pain that awaken her from sleep at approximately 0300 hrs. Patient states that pain is 6-02/2010, constant, crushing in nature, radiates to the back, worsened with exertion, relieved with rest. Patient states that she had waited for the pain to improve and subsequently waited approximately 2 hours before calling EMS. EMS was notified and upon arrival the patient was found to be in distress and subsequent transported to [facility] for further care and evaluation of the aforementioned symptoms. The patient was seen and evaluated in the emergency department. All lab and imaging studies reviewed. Patient found to have clinical symptoms consistent with CHF decompensation, angina at rest, as well as NSTEMI type II. EKG revealed new onset left bundle branch block. Cardiology team notified. Patient taken urgently to Neuro Urologist for surgical intervention. Patient denies fever, chills, productive cough, skin rash, recent contact, known exposure to COVID-19. No prior admission for review. No medication listed at time of admission for reconciliation. Advanced care planning conducted in ED. Past History Past Medical History: atrial fib, anemia, heart failure, hypertension, other (See HPI) Past Surgical History: Other (Left ankle surgery, right knee surgery) Social history: . denies: smoking, alcohol abuse, prescription drug abuse Family history: diabetes, hypertension 02/18: Patient today underwent cardiac cath per the cardiology Cardiac cath 02/17/2022-left main pain, LAD pain, circumflex patent, RCA pain. N onischemic cardiomyopathy with severe LV dysfunction estimated EF 25%. We will continue diuresis for heart failure noted to have elevated BNP. Chest x-ray showing congestion. Due to bradycardia metoprolol dose was decreased to 12.5 mg twice daily at this time holding BROOKE or ARB's due to elevated creatinine. I did discuss with the patient who states that she is not on anticoagulation due to history of GI bleed cardiology agrees at this time to hold anticoagulation. Echo pending Weight loss counseling for 15-minute provided to the patient she verbalized understanding. (1) Acute systolic CHF (congestive heart failure) Current Visit: Yes Status: Acute Plan to address problem: CHF protocol: Strict I's/O, monitoring output every shift, daily weight, afterload reduction, blood pressure control, cardiology team consulted, diuresis. (2) NSTEMI (non-ST elevated myocardial infarction) Current Visit: Yes Status: Acute Plan to address problem: ACS protocol: Serial cardiac enzymes, EKG, telemetry monitoring, patient taken urgently to Neuro Urologist for surgical intervention, supportive care, blood pressure control. Cardiology team consulted in ED. (3) Angina at rest Current Visit: Yes Status: Acute Plan to address problem: Serial cardiac enzymes, EKG, morphine, submental oxygen, nitro, aspirin, pain control, supportive care. (4) NEW Heart block-left bundle branch block/paroxysmal atrial fibrillation Current Visit: Yes Status: Acute Plan to address problem: Cardiology team consulted, telemetry monitoring, continue medical management. (5) Obesity hypoventilation syndrome Current Visit: Yes Status: Acute Plan to address problem: Balanced diet, increase physical activity discharge, outpatient pulmonary follow-up for sleep study. Outpatient bariatric surgery evaluation. (6) HTN (hypertension) Current Visit: Yes Status: Acute Qualifiers: Hypertension type: primary hypertension Qualified Code(s): I10 - Essential (primary) hypertension Plan to address problem: Monitor blood pressure every shift, continue medical management. (7) morbid obesity BMI 54.2 (8) elevated creatinine likely CKD but with possible JERMAINE secondary to vasomotor nephropathy (9) DVT prophylaxis Current Visit: Yes Status: Acute Plan to address problem: SCD to bilateral lower extremities while in bed, (10) Advance care planning Current Visit: Yes Status: Acute Plan to address problem: Disease education conducted, care plan discussed, diagnoses discussed, prognosis discussed, patient is full code. Patient acknowledges understanding and agreement with care plan, +30 minutes. (11) Preventative health care Current Visit: Yes Status: Acute Plan to address problem: Patient counseled regarding risk factor reduction, balanced diet, meal planning, weight reduction, outpatient follow-up with primary care physician for all age and risk factor appropriate screening test. +30 minutes. History Interval history: Patient seen and examined, she denies any chest pain today. Hospitalist Physical - Physical exam Narrative exam: VITAL SIGNS: Reviewed. GENERAL: The patient appears normally developed, morbidly obese vital signs as documented. HEAD: No signs of head trauma. EYES: Pupils are equal. Extraocular motions intact. EARS: Hearing grossly intact. MOUTH: Oropharynx is normal. NECK: No adenopathy, no JVD. CHEST: Chest with clear breath sounds bilaterally. No wheezes, rales, or rhonchi. CARDIAC: Bradycardia with regular rhythm intermittent irregular. S1 and S2, without murmurs, gallops, or rubs. VASCULAR: No Edema. Peripheral pulses normal and equal in all extremities. ABDOMEN: Soft, non tender and non distended. No rebound or guarding, and no masses palpated. Bowel Sounds normal. MUSCULOSKELETAL: Good range of motion of all major joints. Extremities without clubbing, cyanosis or edema. NEUROLOGIC EXAM: Alert and oriented x 3 No focal sensory or strength deficits. Speech normal. Follows commands. PSYCHIATRIC: Mood normal. SKIN: detail exam as documented in skin assessment - Constitutional Vitals: Temp Pulse Resp BP Pulse Ox 98.1 F 56 L 18 128/66 96 02/18/22 11:41 02/18/22 15:00 02/18/22 15:00 02/18/22 15:00 02/18/22 15:00 General appearance: Present: mild distress, obese HEART Score - HEART Score Troponin: Troponin T 0.281 ng/mL (0.00-0.029) H* 02/17/22 08:17 Results - Labs CBC & Chem 7: 02/17/22 08:17 02/18/22 04:42 Labs: Laboratory Last Values WBC 10.0 K/mm3 (4.5-11.0) 02/17/22 08:17 RBC 3.71 M/mm3 (3.65-5.03) 02/17/22 08:17 Hgb 11.2 gm/dl (10.1-14.3) 02/17/22 08:17 Hct 35.0 % (30.3-42.9) 02/17/22 08:17 MCV 95 fl (79-97) 02/17/22 08:17 MCH 30 pg (28-32) 02/17/22 08:17 MCHC 32 % (30-34) 02/17/22 08:17 RDW 14.9 % (13.2-15.2) 02/17/22 08:17 Plt Count 195 K/mm3 (140-440) 02/17/22 08:17 Lymph % (Auto) 4.4 % (13.4-35.0) L 02/17/22 08:17 [place] % (Auto) 6.0 % (0.0-7.3) 02/17/22 08:17 Eos % (Auto) 0.2 % (0.0-4.3) 02/17/22 08:17 Baso % (Auto) 0.2 % (0.0-1.8) 02/17/22 08:17 Lymph # (Auto) 0.4 K/mm3 (1.2-5.4) L 02/17/22 08:17 [place] # (Auto) 0.6 K/mm3 (0.0-0.8) 02/17/22 08:17 Eos # (Auto) 0.0 K/mm3 (0.0-0.4) 02/17/22 08:17 Baso # (Auto) 0.0 K/mm3 (0.0-0.1) 02/17/22 08:17 Seg Neutrophils % 89.2 % (40.0-70.0) H 02/17/22 08:17 Seg Neutrophils # 9.0 K/mm3 (1.8-7.7) H 02/17/22 08:17 PT 15.1 Sec. (12.2-14.9) H 02/17/22 21:22 INR 1.04 (0.87-1.13) 02/17/22 21:22 APTT 29.5 Sec. (24.2-36.6) 02/17/22 21:22 ABG pH 7.370 pH Units (7.350-7.450) 02/17/22 09:00 ABG pCO2 47.8 mm Hg 02/17/22 09:00 ABG pO2 168.8 mm Hg (80.0-90.0) H 02/17/22 09:00 ABG HCO3 27.0 mmol/L (20.0-26.0) H 02/17/22 09:00 ABG O2 Saturation 99.0 % (95.0-99.0) 02/17/22 09:00 ABG O2 Content 13.0 (0.0-44) 02/17/22 09:00 ABG Base Excess 1.4 mmol/L (-2.0-3.0) 02/17/22 09:00 ABG Hemoglobin 9.2 gm/dl (12.0-16.0) L 02/17/22 09:00 ABG Carboxyhemoglobin 1.6 % (0.0-5.0) 02/17/22 09:00 ABG Methemoglobin 0.4 % (0.0-1.5) 02/17/22 09:00 Oxyhemoglobin 97.0 % (95.0-99.0) 02/17/22 09:00 FiO2 100 % 02/17/22 09:00 Sodium 137 mmol/L (137-145) 02/18/22 04:42 Potassium 4.3 mmol/L (3.6-5.0) 02/18/22 04:42 Chloride 97.6 mmol/L (98-107) L 02/18/22 04:42 Carbon Dioxide 30 mmol/L (22-30) 02/18/22 04:42 Anion Gap 14 mmol/L 02/18/22 04:42 BUN 42 mg/dL (7-17) H 02/18/22 04:42 Creatinine 1.6 mg/dL (0.6-1.2) H 02/18/22 04:42 Estimated GFR 38 ml/min 02/18/22 04:42 BUN/Creatinine Ratio 26 % 02/18/22 04:42 Glucose 99 mg/dL (65-100) 02/18/22 04:42 POC Glucose 100 mg/dL (70-105) 02/18/22 11:20 Ketones Quantitative Negative (Negative) 02/17/22 08:17 Lactic Acid 2.10 mmol/L (0.7-2.0) H* 02/17/22 08:17 Calcium 8.3 mg/dL (8.4-10.2) L 02/18/22 04:42 Magnesium 1.80 mg/dL (1.7-2.3) 02/17/22 08:17 Total Bilirubin 0.50 mg/dL (0.1-1.2) 02/17/22 08:17 AST 22 units/L (5-40) 02/17/22 08:17 ALT 11 units/L (7-56) 02/17/22 08:17 Alkaline Phosphatase 101 units/L (35-129) 02/17/22 08:17 Total Creatine Kinase 37 units/L (30-135) 02/17/22 08:17 Total Creatine Kinase 38 units/L (30-135) 02/17/22 08:17 CK-MB (CK-2) 3.1 ng/mL (0.0-4.0) 02/17/22 08:17 CK-MB (CK-2) Rel Index 8.1 (0-4) H 02/17/22 08:17 Troponin T 0.281 ng/mL (0.00-0.029) H* 02/17/22 08:17 C-Reactive Protein 4.30 mg/dL (0.00-1.30) H 02/17/22 08:17 NT-Pro-B Natriuret Pep 5108 pg/mL (0-900) H 02/17/22 08:17 Total Protein 6.7 g/dL (6.3-8.2) 02/17/22 08:17 Albumin 3.7 g/dL (3.9-5) L 02/17/22 08:17 Albumin/Globulin Ratio 1.2 % 02/17/22 08:17 Triglycerides 97 mg/dL (2-149) 02/17/22 08:17 Cholesterol 163 mg/dL (50-199) 02/17/22 08:17 LDL Cholesterol Direct 98 mg/dL (50-130) 02/17/22 08:17 HDL Cholesterol 54 mg/dL (40-59) 02/17/22 08:17 Cholesterol/HDL Ratio 3.01 % 02/17/22 08:17 Lipase 32 units/L (13-60) 02/17/22 08:17 Ambriz/IV: Voiding Method External Female Catheter Active Medications - Current Medications Current Medications: Generic Name Dose Route Start Last Admin Trade Name Freq PRN Reason Stop Dose Admin Acetaminophen 650 mg 02/17/22 10:30 02/18/22 12:22 Acetaminophen 325 Mg Tab PO 650 mg Q4H PRN Administration Pain MILD(1-3)/Fever >100.5/[id number] Aspirin 325 mg 02/17/22 12:00 02/18/22 09:28 Aspirin Ec 325 Mg Tab PO 325 mg QDAY MANPREET Administration Enoxaparin Sodium 40 mg 02/19/22 10:00 Enoxaparin 40 Mg/0.4 Ml Inj SUB-Q QDAY@1000 MANPREET Furosemide 40 mg 02/17/22 18:00 02/18/22 06:34 Furosemide 40 Mg/4 Ml Inj IV 40 mg 0600,1800 MANPREET Administration Sodium Chloride 500 mls @ 50 mls/hr 02/17/22 12:00 02/17/22 19:54 Nacl 0.9% 500 Ml IV 50 mls/hr DIRECT MANPREET Administration Metoprolol Tartrate 12.5 mg 02/18/22 10:00 02/18/22 11:17 Metoprolol Tartrate 25 Mg Tab PO 12.5 mg BID MANPREET Administration Morphine Sulfate 2 mg 02/17/22 11:30 Morphine 4 Mg/1 Ml Inj IV Q4H PRN Pain , Severe (7-10) Ondansetron HCl 4 mg 02/17/22 11:30 Ondansetron 4 Mg/2 Ml Inj IV Q8H PRN Nausea And Vomiting Oxycodone/Acetaminophen 1 tab 02/17/22 11:30 Oxycodone /Acetaminophen 5-325mg Tab PO Q6H PRN Pain, Moderate (4-6) Sodium Chloride 10 ml 02/17/22 11:00 02/18/22 09:27 Sodium Chloride 0.9% 10 Ml Flush Syringe IV 10 ml BID MANPREET Administration Sodium Chloride 10 ml 02/17/22 11:30 Sodium Chloride 0.9% 10 Ml Flush Syringe IV PRN PRN LINE FLUSH
[2022-02-18] MEDS: oxyCODONE /ACETAMINOPHEN 5-325MG TAB PO PRN (19:51)
[2022-02-19] MEDS: FUROSEMIDE 40 MG/4 ML INJ IV SCH ×2 (05:13→18:14)
[2022-02-19 05:58] LABS: Hematocrit 31.2 % (30.3-42.9); Hemoglobin 10.3 gm/dl (10.1-14.3); Mean Corpuscular HGB Conc 33 % (30-34); Mean Corpuscular Volume 93 fl (79-97); Platelet Count 155 K/mm3 (140-440); Red Blood Count 3.34 M/mm3 (3.65-5.03); Red Cell Distribution Width 14.7 % (13.2-15.2)
[2022-02-19 06:04] LABS: Calcium 8.3 mg/dL (8.4-10.2)
--- NOTE | 2022-02-19 09:37 | Electrocardiograph Report ---
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
--- NOTE | 2022-02-19 09:39 | Electrocardiograph Report ---
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 : 1945 Requested By: SUZANNA JOHNSON Order Number: [id number] Reading MD: Richar Cunningham Measurements Intervals [place] Rate: 56 P: SC: QRS: 115 QRSD: 138 T: 135 QT: 500 QTc: 483 Interpretive Statements Atrial fibrillation Ventricular premature complex Nonspecific intraventricular conduction delay t wave inversion anterior and lateral leads consider ischemia Compared to ECG 02/17/2022 08:01:24 Ventricular premature complex(es) now present Intraventricular conduction delay now present Sinus tachycardia no longer present Atrial premature complex(es) no longer present Left bundle-branch block no longer present Electronically Signed On 02-19-2022 9:39:11 EDT by Richar Cunningham
[2022-02-19] MEDS: ASPIRIN EC 325 MG TAB PO SCH (09:54)
[2022-02-19] MEDS: METOPROLOL TARTRATE 25 MG TAB PO SCH (09:54)
[2022-02-19] MEDS: oxyCODONE /ACETAMINOPHEN 5-325MG TAB PO PRN (09:55)
[2022-02-19] MEDS ORDERED: ENOXAPARIN 40 MG/0.4 ML INJ SUB-Q SCH (10:00)
[2022-02-19] MEDS ORDERED: SPIRONOLACTONE 25 MG TAB PO SCH (11:00)
--- NOTE | 2022-02-19 11:21 | Progress Note ---
Assessment and Plan Patient is a 76-year-old female with a past medical history of CHF, A. fib (not on OAC due to anemia), history of CVA, hypertension, DEJUAN, and anemia who came to the ED for complaint of chest pain and shortness of breath which started at 3 AM in the morning NSTEMI New LBBB JERMAINE on CKD? Lactic acidosis A. fib-not on anticoagulation due to history of anemia Hypertension History of CVA DEJUAN History of anemia Echo 02/17/2022-EF 15 to 20%. Right ventricle is Mildly hypokinetic. Mild aortic regurgitation. Moderate mitral regurgitation. Moderate tricuspid regurgitation Cardiac cath 02/17/2022-left main pain, LAD pain, circumflex patent, RCA pain. Nonischemic cardiomyopathy with severe LV dysfunction estimated EF 25%. Plan: Convert to Lasix 40 mg p.o. daily. Initiate Aldactone 12.5 mg p.o. daily Strict I&O's, daily weights, and repeat BMP in the a.m. with close monitoring of renal function Continue metoprolol 12.5 mg p.o. twice daily Will hold BROOKE or ARB at this time due to elevated creatinine Upon review of records patient was discharged from [place] in September and was instructed to hold off on anticoagulation due to symptomatic anemia. Patient was instructed to follow-up with hematology before resuming anticoagulation. 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 Cunningham who agrees with plan of care - Patient Problems (1) Left bundle branch block (LBBB) Current Visit: Yes Status: Acute (2) PAF (paroxysmal atrial fibrillation) Current Visit: Yes Status: Acute (3) H/O: CVA (cerebrovascular accident) Current Visit: Yes Status: Acute (4) Acute systolic CHF (congestive heart failure) Current Visit: Yes Status: Acute (5) HTN (hypertension) Current Visit: Yes Status: Acute Qualifiers: Hypertension type: primary hypertension Qualified Code(s): I10 - Essential (primary) hypertension (6) NSTEMI (non-ST elevated myocardial infarction) Current Visit: Yes Status: Acute (7) Obesity hypoventilation syndrome Current Visit: Yes Status: Acute (8) Acute on chronic HFrEF (heart failure with reduced ejection fraction) Current Visit: Yes Status: Acute Subjective Date of service: 02/19/22 Principal diagnosis: Acute HFrEF, new LBBB Interval history: Patient resting in bed in no acute distress. Patient reports feeling better this a.m. A. fib 60s -70s on monitor Objective Vital Signs Temp Pulse Pulse Resp Resp Resp BP 02/19/22 11:07 68 103/62 02/19/22 09:54 68 103/62 02/19/22 08:49 02/19/22 08:44 68 02/19/22 08:41 68 16 02/19/22 08:20 61 14 103/62 02/19/22 08:10 65 16 103/62 02/19/22 08:00 66 17 103/62 02/19/22 07:50 65 17 121/66 02/19/22 07:43 98.2 F 67 16 137/50 02/18/22 23:54 66 18 02/18/22 23:23 98.1 F 60 16 127/53 02/18/22 22:20 62 21 130/54 02/18/22 22:12 58 L 18 130/54 02/18/22 22:00 56 L 21 130/54 02/18/22 21:31 76 153/90 02/18/22 21:30 59 L 20 153/90 02/18/22 21:00 64 18 153/90 02/18/22 20:54 02/18/22 20:51 13 02/18/22 20:39 66 13 02/18/22 20:30 67 18 155/85 02/18/22 20:00 99.5 F 56 L 16 132/64 02/18/22 19:51 18 02/18/22 19:50 16 16 02/18/22 19:30 58 L 22 132/64 02/18/22 19:00 51 L 16 132/64 02/18/22 18:30 53 L 21 123/66 02/18/22 18:04 98.5 F 02/18/22 18:00 54 L 18 123/66 02/18/22 17:30 58 L 15 120/65 02/18/22 17:00 57 L 18 120/65 02/18/22 16:30 61 10 L 141/60 02/18/22 16:00 98.0 F 52 L 43 L 20 141/60 02/18/22 15:30 56 L 17 128/66 02/18/22 15:00 56 L 18 128/66 02/18/22 14:30 64 10 L 110/42 02/18/22 14:00 53 L 22 135/55 02/18/22 13:30 58 L 16 135/55 02/18/22 13:00 56 L 10 L 129/69 02/18/22 12:30 63 21 129/69 02/18/22 12:00 62 43 L 20 129/69 02/18/22 11:41 98.1 F 02/18/22 11:30 57 L 17 128/63 Pulse Ox 02/19/22 11:07 02/19/22 09:54 02/19/22 08:49 98 02/19/22 08:44 02/19/22 08:41 98 02/19/22 08:20 97 02/19/22 08:10 99 02/19/22 08:00 99 02/19/22 07:50 94 02/19/22 07:43 100 02/18/22 23:54 97 02/18/22 23:23 100 02/18/22 22:20 99 02/18/22 22:12 99 02/18/22 22:00 100 02/18/22 21:31 02/18/22 21:30 97 02/18/22 21:00 98 02/18/22 20:54 97 02/18/22 20:51 02/18/22 20:39 97 02/18/22 20:30 98 02/18/22 20:00 99 02/18/22 19:51 02/18/22 19:50 02/18/22 19:30 97 02/18/22 19:00 98 02/18/22 18:30 98 02/18/22 18:04 02/18/22 18:00 96 02/18/22 17:30 97 02/18/22 17:00 96 02/18/22 16:30 96 02/18/22 16:00 96 02/18/22 15:30 97 02/18/22 15:00 96 02/18/22 14:30 98 02/18/22 14:00 99 02/18/22 13:30 100 02/18/22 13:00 100 02/18/22 12:30 100 02/18/22 12:00 98 02/18/22 11:41 02/18/22 11:30 98 - Physical Examination General: No Apparent Distress HEENT: Positive: PERRL Neck: Positive: trachea midline Cardiac: Positive: irregularly irregular Lungs: Positive: Decreased Breath Sounds Neuro: Positive: Grossly Intact Abdomen: Positive: Soft Skin: Negative: Rash, Suspicious Lesions Extremities: Present: upper extr. pulses, edema - Labs and Meds CBC 02/19/22 Range/Units 05:21 WBC 5.5 (4.5-11.0) K/mm3 RBC 3.34 L (3.65-5.03) M/mm3 Hgb 10.3 (10.1-14.3) gm/dl Hct 31.2 (30.3-42.9) % Plt Count 155 (140-440) K/mm3 Comprehensive Metabolic Panel 02/19/22 Range/Units 05:21 Sodium 136 L (137-145) mmol/L Potassium 4.4 (3.6-5.0) mmol/L Chloride 97.9 L (98-107) mmol/L Carbon Dioxide 24 (22-30) mmol/L BUN 42 H (7-17) mg/dL Creatinine 1.5 H (0.6-1.2) mg/dL Glucose 113 H (65-100) mg/dL Calcium 8.3 L (8.4-10.2) mg/dL - Imaging and Cardiology EKG: report reviewed, image reviewed Echo: report reviewed Cardiac cath: report reviewed - Telemetry EKG Rhythm: Atrial Fibrillation - EKG Sinus rhythms and dysrhythmias: sinus rhythm AV and intraventricular conduction: left bundle branch block
--- NOTE | 2022-02-19 11:31 | Discharge Summary ---
Providers - Providers Date of Admission: 02/17/22 09:53 Attending physician: NATALIIA CREWS MD 02/17/22 09:53 Consult to Physician [CONS] Routine Comment: Consulting Provider: JIMBO CUNNINGHAM Physician Instructions: Reason For Exam: NSTEMI + new LBBB 02/17/22 13:15 Consult to Cardiac Rehabilitation [CONS] Routine Reason For Exam: Cardiac Rehab Evaluation 02/19/22 08:29 Occupational Therapy Evaluate and Treat [CONS] Routine Comment: Reason For Exam: debility Physical Therapy Evaluation and Treat [CONS] Routine Comment: Reason For Exam: debility Hospitalization Reason for admission: SHORTNESS OF BREATH Condition: Stable Hospital course: 76 YO Female with HTN, CHF, Atrial Fib not taking therapeutic anticoagulation, Anemia of Chronic Disease, OA, Obesity Hypoventilation Syndrome, Metabolic Syndrome presents to ED for evaluation. Patient reports "I have pain in my chest". Patient states that she experienced a sudden onset of pain that awaken her from sleep at approximately 0300 hrs. Patient states that pain is -02/2010, constant, crushing in nature, radiates to the back, worsened with exertion, relieved with rest. Patient states that she had waited for the pain to improve and subsequently waited approximately 2 hours before calling EMS. EMS was notified and upon arrival the patient was found to be in distress and subsequent transported to [facility] for further care and evaluation of the aforementioned symptoms. The patient was seen and evaluated in the emergency department. All lab and imaging studies reviewed. Patient found to have clinical symptoms consistent with CHF decompensation, angina at rest, as well as NSTEMI type II. EKG revealed new onset left bundle branch block. Cardiology team notified. Patient taken urgently to Incident [facility] for surgical intervention. Patient denies fever, chills, productive cough, skin rash, recent contact, known exposure to COVID-19. No prior admission for review. No medication listed at time of admission for reconciliation. Advanced care planning conducted in ED. Past History Past Medical History: atrial fib, anemia, heart failure, hypertension, other (See HPI) Past Surgical History: Other (Left ankle surgery, right knee surgery) Social history: . denies: smoking, alcohol abuse, prescription drug abuse Family history: diabetes, hypertension 02/18: Patient today underwent cardiac cath per the cardiology Cardiac cath 02/17/2022-left main pain, LAD pain, circumflex patent, RCA pain. Nonischemic cardiomyopathy with severe LV dysfunction estimated EF 25%. We will continue diuresis for heart failure noted to have elevated BNP. Chest x-ray showing congestion. Due to bradycardia metoprolol dose was decreased to 12.5 mg twice daily at this time holding BROOKE or ARB's due to elevated creatinine. I did discuss with the patient who states that she is not on anticoagulation due to history of GI bleed cardiology agrees at this time to hold anticoagulation. Echo pending Weight loss counseling for 15-minute provided to the patient she verbalized understanding. Echo 02/17/2022-EF 15 to 20%. Right ventricle is Mildly hypokinetic. Mild aortic regurgitation. Moderate mitral regurgitation. Moderate tricuspid regurgitation Cardiac cath 02/17/2022-left main pain, LAD pain, circumflex patent, RCA pain. Nonischemic cardiomyopathy with severe LV dysfunction estimated EF 25%. 02/19: Patient clinical stable this am, will plan for discharge, BB was decreased in dose yesterday due to bradycardia. Cardiology will follow outpatient. Counselling provided, further plan as outlined below by cardiology Convert to Lasix 40 mg p.o. daily. Initiate Aldactone 12.5 mg p.o. daily Strict I&O's, daily weights,close monitoring of renal function with PCP Continue metoprolol 12.5 mg p.o. twice daily Will hold BROOKE or ARB at this time due to elevated creatinine Upon review of records patient was discharged from [facility] in September and was in structed to hold off on anticoagulation due to symptomatic anemia. Patient was instructed to follow-up with hematology before resuming anticoagulation. Will continue to hold anticoagulation Cardiac cath otherwise stable patient has been bed bound for months since her last hospitalization, she stated that she was debilitated from that and continues to require home health (1) Acute systolic CHF (congestive heart failure) Current Visit: Yes Status: Acute Plan to address problem: CHF protocol: Strict I's/O, monitoring output every shift, daily weight, afterload reduction, blood pressure control, cardiology team consulted, diuresis. (2) NSTEMI (non-ST elevated myocardial infarction) Current Visit: Yes Status: Acute Plan to address problem: ACS protocol: Serial cardiac enzymes, EKG, telemetry monitoring, patient taken urgently to Incident [facility] for surgical intervention, supportive care, blood pressure control. Cardiology team consulted in ED. (3) Angina at rest Current Visit: Yes Status: Acute Plan to address problem: Serial cardiac enzymes, EKG, morphine, submental oxygen, nitro, aspirin, pain control, supportive care. (4) NEW Heart block-left bundle branch block/paroxysmal atrial fibrillation Current Visit: Yes Status: Acute Plan to address problem: Cardiology team consulted, telemetry monitoring, continue medical management. (5) Obesity hypoventilation syndrome Current Visit: Yes Status: Acute Plan to address problem: Balanced diet, increase physical activity discharge, outpatient pulmonary follow-up for sleep study. Outpatient bariatric surgery evaluation. (6) HTN (hypertension) Current Visit: Yes Status: Acute Qualifiers: Hypertension type: primary hypertension Qualified Code(s): I10 - Essential (primary) hypertension Plan to address problem: Monitor blood pressure every shift, continue medical management. (7) morbid obesity BMI 54.2 (8) elevated creatinine likely CKD but with possible JERMAINE secondary to vasomotor nephropathy (9) DVT prophylaxis Current Visit: Yes Status: Acute Plan to address problem: SCD to bilateral lower extremities while in bed, (10) Advance care planning Current Visit: Yes Status: Acute Plan to address problem: Disease education conducted, care plan discussed, diagnoses discussed, prognosis discussed, patient is full code. Patient acknowledges understanding and agreement with care plan, +30 minutes. (11) Preventative health care Current Visit: Yes Status: Acute Plan to address problem: Patient counseled regarding risk factor reduction, balanced diet, meal planning, weight reduction, outpatient follow-up with primary care physician for all age and risk factor appropriate screening test. +30 minutes. Disposition: 06 HOME HEALTH CARE SERVICE Final Discharge Diagnosis (Prints w/discharge instructions): Acute systolic CHF (congestive heart failure). (2) NSTEMI (non-ST elevated myocardial infarction). (3) Angina at rest. (4) NEW Heart block-left bundle branch block/paroxysmal atrial fibrillation. (5) Obesity hypoventilation syndrome. Time spent for discharge: 35 MINS Core Measure Documentation - Palliative Care Palliative Care/ Comfort Measures: Not Applicable - Core Measures Any of the following diagnoses?: heart failure - Heart Failure Discharge Requirements BROOKE/ARB for LVSD if EF <40%: No Reason for no BROOKE/ARB: Renal impairment Beta jeannie at discharge: Yes Exam - Physical Exam Narrative exam: VITAL SIGNS: Reviewed. GENERAL: The patient appears normally developed, morbidly obese vital signs as documented. HEAD: No signs of head trauma. EYES: Pupils are equal. Extraocular motions intact. EARS: Hearing grossly intact. MOUTH: Oropharynx is normal. NECK: No adenopathy, no JVD. CHEST: Chest with clear breath sounds bilaterally. No wheezes, rales, or rhonchi. CARDIAC: Bradycardia with regular rhythm intermittent irregular. S1 and S2, without murmurs, gallops, or rubs. VASCULAR: No Edema. Peripheral pulses normal and equal in all extremities. ABDOMEN: Soft, non tender and non distended. No rebound or guarding, and no masses palpated. Bowel Sounds normal. MUSCULOSKELETAL: Good range of motion of all major joints. Extremities without clubbing, cyanosis or edema. NEUROLOGIC EXAM: Alert and oriented x 3 No focal sensory or strength deficits. Speech normal. Follows commands. patient is non ambulatory PSYCHIATRIC: Mood normal. SKIN: detail exam as documented in skin assessment - Constitutional Vitals: Temp Pulse Resp BP Pulse Ox 98.2 F 68 16 103/62 98 02/19/22 07:43 02/19/22 11:07 02/19/22 08:41 02/19/22 11:07 02/19/22 08:49 Plan Activity: advance as tolerated, fall precautions Diet: low salt Special Instructions: restrict fluid intake to (1200CC/DAY), record daily weights, record daily BP diary, physical therapy, occupational therapy Care Plan Goals: Must follow with primary traffic manager by [place] in 1 [address] follow [address] Cunningham of [facility] Follow up with: SCOTTY CASTELLANOS [Other] - 3-5 Days Prescriptions: Spironolactone [Aldactone] 12.5 mg PO QDAY #30 tablet Aspirin [Aspirin BABY CHEW TAB] 81 mg PO QDAY #30 tab.chew Metoprolol [Lopressor TAB] 12.5 mg PO BID #60 tablet Pantoprazole [Protonix TAB] 40 mg PO QDAY #30 tablet
[2022-02-19] MEDS ORDERED: SODIUM CHLORIDE 0.9% 250ML 250 ML IV SCH (11:44)
[2022-02-19] MEDS ORDERED: SODIUM CHLORIDE 0.9% 1000 ML 1,000 ML ONE (11:58)
[2022-02-19 17:06] VITALS: BP 119/59
== END 2022-02-19 20:00 | disposition home health service (06) | DRG 280 ==
LOC: ED 07:25 → 4A 09:53 → ED 10:09 → IMCU 11:12 → 4A 02-18 23:06
PROVIDERS: ADMIT Internal Medicine; ATTEND Internal Medicine
PROC: 4A033R1 Measurement of Arterial Saturation, Peripheral, Percutaneous Approach (ICD-10-PCS; principal; 2022-02-17)
PROC: 4A023N7 Measurement of Cardiac Sampling and Pressure, Left Heart, Percutaneous Approach (ICD-10-PCS; 2022-02-17)
PROC: B2151ZZ Fluoroscopy of Left Heart using Low Osmolar Contrast (ICD-10-PCS; 2022-02-17)
PROC: B2111ZZ Fluoroscopy of Multiple Coronary Arteries using Low Osmolar Contrast (ICD-10-PCS; 2022-02-17)
DX: I21.4 Non-ST elevation (NSTEMI) myocardial infarction (principal); I50.21 Acute systolic (congestive) heart failure; N17.0 Acute kidney failure with tubular necrosis; E66.2 Morbid (severe) obesity with alveolar hypoventilation; E87.2 Acidosis; Z68.43 Body mass index [BMI] 50.0-59.9, adult; I42.8 Other cardiomyopathies; I13.0 Hypertensive heart and chronic kidney disease with heart failure and stage 1 through stage 4 chronic kidney disease, or unspecified chronic kidney disease; I44.7 Left bundle-branch block, unspecified; E88.81 Metabolic syndrome and other insulin resistance; M19.90 Unspecified osteoarthritis, unspecified site; I48.0 Paroxysmal atrial fibrillation; N18.9 Chronic kidney disease, unspecified; Z83.3 Family history of diabetes mellitus; Z82.49 Family history of ischemic heart disease and other diseases of the circulatory system; Z86.73 Personal history of transient ischemic attack (TIA), and cerebral infarction without residual deficits
CPT/HCPCS: 36415; 36600; 71045; 80048; 80053; 80061; 82010; 82140; 82550; 82553; 82803; 82962; 83690; 83735; 83880; 84484; 85025; 85027; 85610; 85730; 86140; 93005; 93306; 93458; 94644; 94760; 99285; G0378; J1815; J3490; C1769; C1894; C8929; J1644; J1650; J1940; J2250; J3010; J7030; J7040; Q9967